=== PATIENT | female | born 1985 | race Caucasian/White ===

== ENCOUNTER → 2017-01-20 | Outpatient (CLI) | payer OTHER ==
--- NOTE | ~2017-01-20 | CR181 ---
[facility] A Service of [facility] RADIOLOGY TEXT RESULTS PATIENT: LUCIANA SUTTON LOCATION: [facility] : 81 UNIT #: [id number] AGE: [address]: STAN FITZGERALD SEX: F ORDER DR: [id number] [facility] [address] [place], [place] [address] [id number] O MR#: [id number] Acc #: [id number] NAME: LUCIANA SUTTON : 1985 SEX: F STUDY DATE/TIME: 01/20/2017 12:56 UNIT: [facility] ROOM: STUDY DESCRIPTION: CR Lumbar Spine 2 or 3 Views Attending Physician: Kunal Crane Referring Physician: Kunal Crane Ordering Physician: Kunal Crane Primary Care Physician: Denise Viera M.D. MEDICAL IMAGING REPORT This report is preliminary unless electronic signature is present EXAM Lumbar spine, 3 views, 01/20/2017 HISTORY Low back pain for 1.5 weeks with no known trauma. FINDINGS AP and lateral projections of the lumbar segment show good mineralization of both anterior and posterior elements. They are all anatomically normal without indication of fracture, dislocation, or malignant change of a sclerotic or lytic type. There is no congenital defect noted. The sacroiliac joints are normal. IMPRESSION Normal lumbar spine. Dictated by... Perico Ma M.D. THIS IS AN ELECTRONICALLY VERIFIED REPORT Perico Ma M.D. at 01/21/2017 8:13 AM JOSSELIN/hernan TD: 01/21/2017 00:24 JOB #: [id number] MEDICAL IMAGING REPORT Page 1 of 1 COPY
== END | disposition home or self-care (01) ==
LOC: CRAD 12:42
DX: M54.5 Low back pain (principal)
CPT/HCPCS: 72100